=== PATIENT | female | born 1995 | race Caucasian/White ===

== ENCOUNTER 2018-07-01 10:41 | Inpatient (IN) | payer BC ==
[~2018-07-01] VITALS: Ht 172.7 cm; Wt 98.4 kg
[~2018-07-01 10:41] MED LIST: LORTAB 5/500 TA1 TA2 PO
[2018-07-01] MEDS ORDERED: PRENAVITE1 TAB PO (10:54)
[2018-07-01 10:55] VITALS: BP 116/64; Ht 172.7 cm; Wt 98.4 kg
[2018-07-01] MEDS ORDERED: TYLENOL PM1 TAB PO (10:55)
[2018-07-01 11:57] LABS: BASOPHILS 0.2 % (0-2); HEMATOCRIT 38.2 % (36.0-48.0); IMMATURE GRANULOCYTES 0.8 % (0-5); LYMPHOCYTES 20.8 % (15-50); MCH 30.2 pg (26.0-34.0); MCV 88.6 fL (80.0-100.0); MEAN PLATELET VOLUME 11.4 fL (7.4-10.4); MONOCYTES 8.9 % (2-11); NEUTROPHILS 68.3 % (40-80); PLATELET COUNT 230 10x3/uL (130-400); RBC 4.31 10x6/uL (4.00-5.40); RDW 12.8 % (11.5-14.5); WBC 12.8 10x3/uL (4.8-10.8)
[2018-07-01 12:30] LABS: ALBUMIN 2.4 g/dL (3.4-5.0); ALKALINE PHOSPHATASE 159 U/L (46-116); ALT (SGPT) 14 U/L (10-68); BILIRUBIN - DIRECT 0.06 mg/dL (0.00-0.30); BILIRUBIN - TOTAL 0.36 mg/dL (0.2-1.3); CALC OSMOLALITY 271 mosm/kg (275-300); CALCIUM 8.3 mg/dL (8.5-10.1); CARBON DIOXIDE 24.3 mmol/L (21.0-32.0); CHLORIDE - SERUM 104 mmol/L (98-107); CREATININE - SERUM 0.7 mg/dL (0.6-1.3); GLUCOSE 82 mg/dL (74-106); POTASSIUM - SERUM 4.2 mmol/L (3.5-5.1); PROTEIN - SERUM 6.4 g/dL (6.4-8.2); SODIUM 137 mmol/L (136-145); UREA NITROGEN 9 mg/dL (7-18); URIC ACID 4.6 mg/dL (2.6-7.2); eGFR NON AFRICAN AMERICAN > 90 mL/min (90-120)
[2018-07-01 20:50] LABS: UDS - AMPHET NEGATIVE QUAL (NEGATIVE); UDS - BARB NEGATIVE QUAL (NEGATIVE); UDS - BENZO NEGATIVE QUAL (NEGATIVE); UDS - COCAINE NEGATIVE QUAL (NEGATIVE); UDS - OPIATE NEGATIVE QUAL (NEGATIVE); UDS - PCP NEGATIVE QUAL (NEGATIVE); UDS - THC POSITIVE QUAL (NEGATIVE)
[2018-07-02 06:07] LABS: HEMATOCRIT 33.6 % (36.0-48.0); HEMOGLOBIN 11.5 g/dL (12-16); MCH 29.9 pg (26.0-34.0); MCHC 34.2 g/dL (31.0-37.0); MCV 87.5 fL (80.0-100.0); MEAN PLATELET VOLUME 11.7 fL (7.4-10.4); RBC 3.84 10x6/uL (4.00-5.40); WBC 22.8 10x3/uL (4.8-10.8)
[2018-07-02 07:22] LABS: RAPID PLASMA REAGIN Non Reactive (Non Reactive)
--- NOTE | 2018-07-02 08:18 | OP ---
PATIENT NAME: JOSE HOGAN MEDICAL RECORD: [id number] :95 LOCATION:[id number] ADMISSION DATE:07/01/18 SURGEON: KEDAR MORGAN MD DATE OF OPERATION: 07/01/2018 DELIVERY NOTE PREDELIVERY DIAGNOSES: 1. at 39 weeks' gestation. 2. -induced hypertension. POSTDELIVERY DIAGNOSES: 1. at 39 weeks' gestation. 2. -induced hypertension. 3. Shoulder dystocia. PROCEDURE: Induction of labor with vaginal delivery. ATTENDING: Kedar Morgan MD ANESTHETIC: Continuous lumbar epidural. FINDINGS: Viable male infant, vertex presentation, Apgars 7 and 9. Shoulder dystocia relieved with Castro and suprapubic from the left. Normal downward traction applied to the vertex. First-degree lacerations without repair. Weight 4270 grams. Placenta spontaneous and intact. is moving both arms immediately following delivery. ESTIMATED BLOOD LOSS: 300 cc. DISPOSITION: Mother and recovered in the room. TRANSINT:[id number] Voice Confirmation ID: [id number] DOCUMENT ID: [id number] KEDAR MORGAN MD at 0818 CC: [id number] DICTATION DATE: 07/01/18 2332 JOINT YARNER: 07/02/18 0224 ADM IN [place] [id number] [place] [id number]
[2018-07-02 09:00] VITALS: BP 106/68
[2018-07-02 19:19] VITALS: BP 116/67
[2018-07-03 08:05] VITALS: BP 109/67
--- NOTE | 2018-07-05 09:18 | DS ---
PATIENT:JOSE HOGAN :89 MEDICAL RECORD: [id number] DISCHARGE SUMMARY ADMISSION DATE: 07/01/18 DISCHARGE DATE: 07/03/18 DATE OF ADMISSION: 07/01/2018 DATE OF DISCHARGE: 07/03/2018 ADMISSION DIAGNOSES: 1. -induced hypertension. 2. at 39 weeks. DISCHARGE DIAGNOSES: 1. -induced hypertension. 2. at 39 weeks. 3. Shoulder dystocia. PROCEDURE: Induction of labor with vaginal delivery. ATTENDING: Rohit Morgan MD HISTORY OF PRESENT ILLNESS AND REASON FOR HOSPITALIZATION: Please see the H&P. SUMMARY OF HOSPITALIZATION: The patient was admitted to the hospital at 39 weeks with favorable cervix and elevated pressures in clinic. The patient did not have preeclampsia and induction was pursued. The patient went on to deliver vaginally with shoulder dystocia relieved by Castro and suprapubic from the left. The patient did well and will be discharged home with [id number] pain medications. I have discussed contraception with the patient who will be , she is undecided at this time. Follow up in 6 weeks at the clinic. Standard precautions have been reviewed. TRANSINT:[id number] Voice Confirmation ID: [id number] DOCUMENT ID: [id number] ROHIT MORGAN MD at 0918 CC: [id number] DICTATION DATE: 07/03/18 07 NARROW GAUGE BRAKEMAN: 07/04/18 0006 DIS IN 07/03/18 [place] [id number] [place] [id number]
== END 2018-07-03 13:20 | disposition home or self-care (01) | DRG 807 ==
LOC: D.LD 10:41
PROVIDERS: ADMIT Obstetrics & Gynecology; ATTEND Obstetrics & Gynecology
PROC: 10E0XZZ Delivery of Products of Conception, External Approach (ICD-10-PCS; principal; 2018-07-01)
PROC: 3E033VJ Introduction of Other Hormone into Peripheral Vein, Percutaneous Approach (ICD-10-PCS; 2018-07-01)
DX: O13.4 Gestational [pregnancy-induced] hypertension without significant proteinuria, complicating childbirth (principal); Z37.0 Single live birth; Z3A.39 39 weeks gestation of pregnancy; O66.0 Obstructed labor due to shoulder dystocia; O70.0 First degree perineal laceration during delivery